=== PATIENT | female | born 1965 | race Caucasian/White ===

== ENCOUNTER → 2017-07-11 | Outpatient (CLI) | payer MEDICARE ==
--- NOTE | 2017-07-11 16:52 | RADIOLOGY REPORT (SQ) ---
EXAM DESCRIPTION: CHEST PA/LATERAL COMPLETED DATE/TIME: 07/11/2017 4:44 pm REASON FOR STUDY: CHEST PAIN, UNSPECIFIED COMPARISON: None. EXAM PARAMETERS: NUMBER OF VIEWS: two views TECHNIQUE: Digital Frontal and Lateral radiographic views of the chest acquired. RADIATION DOSE: NA LIMITATIONS: none FINDINGS: LUNGS AND PLEURA: No opacities, masses or pneumothorax. No pleural effusion. MEDIASTINUM AND HILAR STRUCTURES: No masses or contour abnormalities. HEART AND VASCULAR STRUCTURES: Heart normal size. No evidence for failure. BONES: No acute findings. HARDWARE: None in the chest. OTHER: No other significant finding. IMPRESSION: NO SIGNIFICANT RADIOGRAPHIC FINDING IN THE CHEST. TECHNICAL DOCUMENTATION: JOB ID: [id number] [email or web address]- All Rights Reserved Reading location - IP/workstation name: [email or web address]
[2017-07-11 17:05] LABS: ABSOLUTE EOSINOPHILS # (AUTO) 0.2 10^3/uL (0.0-0.6); ABSOLUTE LYMPHOCYTES (AUTO) 1.9 10^3/uL (0.5-4.7); ABSOLUTE MONOCYTES (AUTO) 0.5 10^3/uL (0.1-1.4); BASOPHILS % (AUTO) 0.5 % (0-2); EOSINOPHILS % (AUTO) 2.3 % (0-6); HEMATOCRIT 42.1 % (36.0-47.0); HEMOGLOBIN 13.4 g/dL (12.0-15.5); LYMPHOCYTES % (AUTO) 22.2 % (13-45); MEAN CORPUSCULAR HEMOGLOBIN 26.8 pg (27.0-33.4); MEAN CORPUSCULAR HGB CONC 31.9 g/dL (32.0-36.0); MEAN CORPUSCULAR VOLUME 84 fl (80-97); MONOCYTES % (AUTO) 5.3 % (3-13); PLATELET COUNT 280 10^3/uL (150-450); RED BLOOD COUNT 5.01 10^6/uL (3.72-5.28); RED CELL DISTRIBUTION WIDTH 14.5 % (11.5-14.0); SEGMENTED NEUTROPHILS % (AUTO) 69.7 % (42-78); TOTAL CELLS COUNTED % (AUTO) 100 %; WHITE BLOOD COUNT 8.6 10^3/uL (4.0-10.5)
[2017-07-11 17:31] LABS: ALANINE AMINOTRANSFERASE 34 U/L (9-52); ALBUMIN 4.4 g/dL (3.5-5.0); ALKALINE PHOSPHATASE 75 U/L (38-126); ANION GAP 12 (5-19); ASPARTATE AMINO TRANSFERASE 23 U/L (14-36); BILIRUBIN,DIRECT 0.2 mg/dL (0.0-0.4); BILIRUBIN,TOTAL 0.3 mg/dL (0.2-1.3); BLOOD UREA NITROGEN 12 mg/dL (7-20); CALCIUM 10.8 mg/dL (8.4-10.2); CARBON DIOXIDE 28 mmol/L (22-30); CHLORIDE 102 mmol/L (98-107); GLUCOSE 115 mg/dL (75-110); POTASSIUM 4.3 mmol/L (3.6-5.0); SODIUM 142.2 mmol/L (137-145); TOTAL PROTEIN 7.3 g/dL (6.3-8.2)
[2017-07-11 17:38] LABS: C-REACTIVE PROTEIN < 5.0 mg/L (<10.0)
[2017-07-11 17:43] LABS: ERYTHROCYTE SEDIMENTATION RATE 49 mm/hr (0-30)
--- NOTE | 2017-07-11 21:57 | EKG REPORT ---
SEVERITY:- NORMAL ECG - SINUS RHYTHM : Confirmed by: Ryann Sanz 11-Jul-2017 21:56:34
== END ==
LOC: OD 16:01
PROVIDERS: ATTEND Nurse Practitioner Family
DX: R07.9 Chest pain, unspecified (principal); M79.671 Pain in right foot; M25.50 Pain in unspecified joint
CPT/HCPCS: 36415; 71046; 80053; 84484; 85025; 85652; 86038; 86140; 86430; 93005; 93010

== ENCOUNTER → 2018-06-18 | Outpatient (CLI) | payer MEDICARE, MEDICAID | LOC: OD 14:21 | PROVIDERS: ATTEND Nurse Practitioner Family | DX: R82.71 Bacteriuria (principal) | CPT/HCPCS: 87086; 87088; 87186 ==

== ENCOUNTER 2019-01-11 09:13 | Emergency (ER) | payer MEDICARE, MEDICAID ==
--- NOTE | 2019-01-11 10:41 | ER Document Report ---
HPI - HPI Patient complains to provider of: L hip pain Time Seen by Provider: 01/11/19 10:03 Pain Level: 1 Context: 53-year-old female with left hip replacement in 2011 presents the emergency department with acute on chronic back and hip pain. Patient states that the pain is gotten acutely worse over the last few weeks and she bears weight on it less and less. Patient states that the pain is starts in her left hip and radiates down to her anterior medial knee, she also has con current low back pain with periodic radiculopathy to her left leg. Patient denies any fevers or chills, recent illness, trauma or falls. Patient denies nausea or vomiting. Patient states that she got steroid injections about 3 months ago and they did help for a short period of time. Denies shortness of breath or chest pain. - CONSTITUTIONAL Constitutional: DENIES: Fever, Chills - REPRODUCTIVE Reproductive: DENIES: : Past Medical History - Social History Smoking Status: Never Smoker Chew tobacco use (# tins/day): No Frequency of alcohol use: None Drug Abuse: None Family History: None Patient has suicidal ideation: No Patient has homicidal ideation: No Renal/ Medical History: Denies: Hx Peritoneal Dialysis Past Surgical History: Reports: Hx Cholecystectomy - 2010 Vertical Provider Document - CONSTITUTIONAL Notes: PHYSICAL EXAMINATION: Reviewed vital signs and charting by RN GENERAL: Alert, interacts well. No acute distress. HEAD: Normocephalic, atraumatic. EYES: Pupils equal and round. Extraocular movements intact. ENT: Oral mucosa moist, tongue midline. NECK: Full range of motion. Trachea midline. LUNGS: Clear to auscultation bilaterally, no wheezes, rales, or rhonchi. No respiratory distress. HEART: Regular rate and rhythm. No murmur ABDOMEN: soft, non-tender. No distention. Bowel sounds present EXTREMITIES: Moves all 4 extremities spontaneously. Straight leg raise test of the left leg negative for radiculopathy but patient had significant left hip pain, negative testing for opposite leg raise, tenderness to palpation over the left hip and over the left paraspinal muscles at the level of L5-S1, no warmth, erythema, rash seen at the sites PSYCH: Normal affect, normal mood. SKIN: Warm, dry, normal turgor. No rashes or lesions noted. - INFECTION CONTROL TRAVEL OUTSIDE OF THE [place] IN LAST 30 DAYS: No Course - Re-evaluation Re-evalutation: 01/11/19 11:56 Patient is well-appearing and is complaining of left hip pain and low back pain. Her chief complaint is left hip pain. X-ray was negative. Strict return precautions given, patient with a normal motor and neuro exam. She is stable for discharge - Vital Signs Vital signs: Temp Pulse Resp BP Pulse Ox 98.1 F 95 18 134/84 H 94 01/11/19 09:21 01/11/19 09:21 01/11/19 09:21 01/11/19 09:21 01/11/19 09:21 Discharge - Discharge Clinical Impression: Left hip pain Low back pain Qualifiers: Chronicity: chronic Back pain laterality: left Sciatica presence: without sciatica Qualified Code(s): M54.5 - Low back pain; G89.29 - Other chronic pain Condition: Good Disposition: HOME, SELF-CARE Instructions: Low Back Pain ([facility]) Additional Instructions: You have been seen in the Emergency Department (ED) today for back pain and hip pain. Your workup and exam have not shown any acute abnormalities and you are likely suffering from muscle strain or possible problems with your discs, but there is no treatment that will fix your symptoms at this time. Please take Motrin 600 mg every 6 hours and/or Tylenol every 6 hours for pain/inflammation. You should also purchase a local lidocaine cream such as "aspercreme with lidocaine" and use per bottle instructions to the affected area. Apply heat to the area as often as you are able. Continue to keep active and avoid prolonged periods of bed rest. Please follow up with your doctor as soon as possible regarding today's ED visit and your back pain. Return to the ED for worsening back pain, fever, weakness or numbness of either leg, or if you develop either (1) an inability to urinate or have bowel movements, or (2) loss of your ability to control your bathroom functions (if you start having "accidents"), or if you develop other new symptoms that concern you.concern you. Referrals: CHARIS GARCIA MD [Primary Care Provider] - Follow up as needed
--- NOTE | 2019-01-11 11:47 | RADIOLOGY REPORT (SQ) ---
EXAM DESCRIPTION: HIP LEFT AP/LATERAL COMPLETED DATE/TIME: 01/11/2019 11:23 am REASON FOR STUDY: L hip pain, difficulty w ambulation COMPARISON: None. NUMBER OF VIEWS: Two views. TECHNIQUE: AP pelvis and additional frog-leg view of the left hip. LIMITATIONS: None. FINDINGS: Intact left total hip arthroplasty. No evidence of dislocation, loosening or infection. Moderate osteoarthritic changes in the right hip. IMPRESSION: Intact left hip arthroplasty. TECHNICAL DOCUMENTATION: JOB ID: [id number] [email or web address]- All Rights Reserved Reading location - IP/workstation name: [email or web address]
[2019-01-11] MEDS ORDERED: KETOROLAC TROMETHAMINE 60 MG/2 ML SDV IM ONE (12:05)
[2019-01-11] MEDS ORDERED: LIDOCAINE 5% (700 MG) TRANSDERMAL ADH..PATCH TP ONE (12:05)
[2019-01-11 12:19] VITALS: BP 140/76
== END 2019-01-11 12:21 | disposition home or self-care (01) ==
LOC: ER 09:13
DX: M54.5 Low back pain (principal); G89.29 Other chronic pain; M25.552 Pain in left hip; M54.9 Dorsalgia, unspecified
CPT/HCPCS: 73502; J1885; 96374; 99283